=== PATIENT | male | born 1995 | race Caucasian/White ===

== ENCOUNTER 2018-02-06 19:15 | Emergency (ER) | payer SELFPAY ==
--- NOTE | 2018-02-06 20:31 | UC ---
Lower Extremity/Ankle HPI - HPI Summary HPI Summary: 22-year-old male presents with complaints of itching, peeling, and discomfort in between the toes of his left foot for the past week. States he has been using an antifungal spray to the top of his feet with some improvement however the areas in between his third and fourth and fourth and fifth toes have shown no improvement. He denies any fevers, chills, redness that spreads, swelling of the foot, or purulent drainage. - History of Current Complaint Chief Complaint: [employer] Stated Complaint: LEFT FOOT PAIN Time Seen by Provider: 02/06/18 20:14 Hx Obtained From: Patient Onset/Duration: Gradual Onset, Lasting Days Severity Initially: Mild Severity Currently: Mild Pain Intensity: 0 Aggravating Factor(s): Nothing Alleviating Factor(s): OTC Meds Able to Bear Weight: Yes - Allergies/Home Medications Allergies/Adverse Reactions: Allergies Allergy/AdvReac Type Severity Reaction Status Date / Time No Known Allergies Allergy Verified 02/06/18 19:36 PMH/Surg Hx/FS Hx/Imm Hx Previously Healthy: Yes - Surgical History Surgical History: None - Family History Known Family History: Positive: None - Noncontributory - Social History Occupation: Unemployed Lives: Alone Alcohol Use: None Substance Use Type: None Smoking Status (MU): Never Smoked Tobacco Review of Systems Constitutional: Negative Skin: Other - See history of present illness Motor: Negative Neurovascular: Negative Musculoskeletal: Negative Is Patient Immunocompromised?: No All Other Systems Reviewed And Are Negative: Yes Physical Exam Triage Information Reviewed: Yes Appearance: Well-Appearing, No Pain Distress, Well-Nourished Vital Signs: Initial Vital Signs Temp 98.7 F 02/06/18 19:31 Pulse 79 02/06/18 19:31 Resp 17 02/06/18 19:31 BP 140/78 02/06/18 19:31 Pulse Ox 100 02/06/18 19:31 Vital Signs Reviewed: Yes Respiratory: Positive: No respiratory distress Cardiovascular: Positive: Pulses Normal, Brisk Capillary Refill Neurological Exam: Normal Skin: Positive: Other - Mild erythema with scaling, erosions and fissures between third and fourth and fourth and fifth toes of the left foot. No induration, fluctuance, or purulent drainage noted. Lower Extremity Course/Dx - Course Course Of Treatment: 22-year-old male with complaints of itching, peeling, and redness in between the toes of his left foot. Used an [id number] antifungal spray with some relief however states symptoms in between his third and fourth and fourth and fifth toes of his left foot not improved any. His exam is consistent with a tinea pedis. We'll have him use clotrimazole cream twice a day for up to 2 weeks along with good foot care and a foot powder to help absorb excess moisture. He is to follow-up with a primary care provider in 2 weeks if no improvement. He was given a list of primary care providers in the area. He verbalizes understanding and agrees with plan of care. - Differential Dx/Diagnosis Provider Diagnoses: Tinea pedis left foot Discharge - Sign-Out/Discharge Documenting (check all that apply): Patient Departure - Discharge Plan Condition: Stable Disposition: HOME Prescriptions: Clotrimazole 1% CREAM* [Clotrimazole 1%*] 1 applic TOPICAL BID #1 tube Patient Education Materials: Antifungals (On the skin), Athlete's Foot (ED) Referrals: No Primary Care Phys,NOPCP [Primary Care Provider] - Additional Instructions: Clean your feet daily making sure you pat them thoroughly dry afterwards. Apply clotrimazole cream in between toes twice a day for up to 2 weeks. You may also use a powder to help excess moisture in your socks and shoes. Return or follow-up with a primary care provider if no improvement in 2 weeks. Seek immediate medical attention if you have increased pain, redness that spreads, swelling of the feet, or any worsening of symptoms. - Billing Disposition and Condition Condition: STABLE Disposition: Home
== END 2018-02-06 20:36 | disposition home or self-care (01) ==
LOC: UCCORT 19:15
DX: B35.3 Tinea pedis (principal)
CPT/HCPCS: 99202; G0463